=== PATIENT | female | born 1995 | race Caucasian/White ===

== ENCOUNTER 2018-05-11 20:54 | Emergency (ER) | payer OTHER ==
[2018-05-12] MEDS: KETOROLAC 30 MG INJ IV (00:53)
[2018-05-12 01:07] LABS: ADD MAN DIFF? NO
[2018-05-12 01:11] LABS: BASOPHILS % 0.1 % (0.0-2.0); EOSINOPHILS # 0.1 10^3/ul (0.0-0.5); EOSINOPHILS % 1.1 % (0.0-7.0); HEMATOCRIT 37.1 % (37.0-47.0); HEMOGLOBIN 12.6 g/dl (12.0-16.0); LYMPHOCYTES # 2.8 10^3/ul (0.8-2.9); LYMPHOCYTES % 29.7 % (15.0-51.0); MEAN CORPUSCULAR VOLUME 88.3 fl (82.0-101.0); MEAN PLATELET VOLUME 10.1 fl (7.4-10.4); MONOCYTE # 0.8 10^3/ul (0.3-0.9); MONOCYTES % 7.9 % (0.0-11.0); NEUTROPHIL # 5.8 10^3/ul (1.6-7.5); PLATELET COUNT 313 10^3/UL (140-415); RED CELL DISTRIBUTION WIDTH 12.7 % (11.5-14.5)
[2018-05-12 01:11] LABS: WHITE BLOOD COUNT 9.4 10^3/ul (4.8-10.8)
[2018-05-12 01:31] LABS: URIC ACID 2.9 mg/dl (3.1-7.9)
== END 2018-05-12 03:53 | disposition home or self-care (01) ==
LOC: FTE 20:54
DX: M79.674 Pain in right toe(s) (principal)
CPT/HCPCS: 73630; 81025; 84560; 85025; 96374; 99284-25